=== PATIENT | female | born 1950 | race African-American/Black ===

== ENCOUNTER 2016-05-26 18:32 | Observation (INO) ==
[2016-05-26] MEDS ORDERED: NITROGLYCERIN SL 0.4 MG TABLET SL PRN (19:57)
[2016-05-26 20:28] LABS: Basophils % 0.2 % (0.0-0.8); Eosinophils # 0.1 10*3/uL (0.0-0.87); Eosinophils % 0.9 % (0.00-10.9); Hematocrit 35.5 VOL% (35.7-47.0); Hemoglobin 11.2 GM/DL (12.0-16.0); Immature Granulocytes % 0.5 %; Immature Granulocytes Absolute 0.04 #; Lymphocytes # 3.7 10*3/uL (1.4-4.0); Lymphocytes % 42.4 % (21.3-54.2); Mean Corpuscular HGB Conc 31.5 GM/DL (32-36); Mean Corpuscular Hemoglobin 28 PG (27-34); Mean Corpuscular Volume 88.5 FL (87-102); Mean Platelet Volume 11.2 FL (9.6-12.0); Monocytes # 0.7 10*3/uL (0.11-0.8); Monocytes % 7.5 % (1.7-12.7); Neutrophils # 4.3 10*3/uL (1.4-7.4); Neutrophils % 48.5 % (38.7-73.9); Platelet Count 305 T/CUMM (130-400); Red Blood Count 4.01 MC/CUMM (3.8-5.5); Red Cell Distribution Width 14.6 % (9.3-17.3); White Blood Count 8.8 T/CUMM (4-12)
--- NOTE | 2016-05-26 20:31 | XRay Report ---
XR chest 2V Date: 05/26/2016 7:59 PM History: Chest pain Comparison: 03/07/2016 Technique: PA and lateral chest Findings: The heart is normal in size. The lungs and mediastinum are stable in appearance. Degenerative changes are noted. Prior cholecystectomy. Impression: No acute cardiopulmonary pathology identified. PROCEDURE INTERPRETED AT [facility] DEPARTMENT OF RADIOLOGY Final Report Signed by: Dr. Sabine Mullins
[2016-05-26 20:35] LABS: PT Patient Result 10.1 SECS; Partial Thromboplastin Time 27.5 SECS (0-40)
[2016-05-26 21:02] LABS: Alanine Aminotransferase 13 U/L (13-56); Albumin 3.7 G/DL (3.4-5.0); Alkaline Phosphatase 72 U/L (45-117); Aspartate Amino Transferase 13 U/L (0-37); Bilirubin,Total < 0.39 MG/DL (0.2-1.0); Blood Urea Nitrogen 12 MG/DL (7-18); Calcium 8.3 MG/DL (8.5-10.1); Glucose 101 MG/DL (74-106); Magnesium 2.2 MG/DL (1.8-2.4); Osmolality,Calculated 289.6 MOS/KG (273-304); Potassium 3.8 MMOL/L (3.5-5.1); Sodium 146 MMOL/L (136-145)
[2016-05-26 21:27] LABS: Apearance,Urine CLEAR (Clear); Bilirubin,Urine Negative (Negative); Blood, Urine Negative (Negative); Glucose,Urine (UA) Negative (Negative); Ketones,Urine Negative (Negative); Nitrite,Urine Negative (Negative); Protein,Urine Negative; Squamous Epithelial Cell,Urine Occasional /HPF (0-10); Urine Color Colorless (Yellow); Urine Specific Gravity 1.002 (1.001-1.035); Urine Urobilinogen < 2.0 EU/DL (0.2-1.0); WBC,Urine <1 /HPF (0-6)
[2016-05-26 21:47] LABS: Barbiturates Screen,Urine Negative (Negative); Benzodiazepines Screen,Urine Negative (Negative); Cannabinoid Screen,Urine Negative (Negative); Opiate Screen,Urine Negative (Negative); Phencyclidine Screen,Urine Negative (Negative)
[2016-05-26] MEDS ORDERED: NITROGLYCERIN SL 0.4 MG TABLET SL STA (22:10)
[2016-05-26] MEDS ORDERED: NITROGLYCERIN SL 0.4 MG TABLET SL ONE (22:40)
--- NOTE | 2016-05-26 22:58 | Emergency Department Note ---
Inez Aponte Brittany, am scribing for, and in the presence of, Lucio Lyons MD 20:05. Eloy Aponte William S., MD, personally performed the services described in this documentation, ascribed by Elena Wiley in my presence, and it is both accurate and complete . Arrival - Arrival Chief Complaint: Chest Pain Stated Complaint: chest pain ED Nursing Triage Note: pain in center of chest radiating up under left arm that started one hour ago. reports sob when she walks for awhile. sent here from [facility]. Mode of Arrival: Ambulatory Limitations: No Limitations Source: Patient - History of Present Illness HPI Narrative: This is a a 65 y/o black female,who presents to the ED for further evaluation of CP which started last week. She states she is also SOB with the chest pain. She reports the chest pain lasted 30 minutes. She states the chest pain comes and goes. She localizes the chest pain to the upper chest area. She rates the chest pain as a 9 out of 10. She describes the chest pain as a burning type of pain. She reports the SOB is worse with exertion.Pt also complains of URI Sx which started last week. She reports she started to cough up mucous. Pt has no other complaints/pain in the ED at this time. Pt has a PMhx of HTN, endometriosis, ovarian cyst, musculoskeletal problems. Pt has had an appendectomy, cholecystectomy, , colonoscopy, EGD, gynecological surgery, hysterectomy, and total knee replacement. Pt has a family medical Hx of heart disease, diabetes, HTN, and stroke. Pt is a current every day smoker. Onset (ago): hour(s) (Started earlier today) Consistency: constant Severity: moderate Allergies/Adverse Reactions: Allergies Allergy/AdvReac Type Severity Reaction Status Date / Time ketorolac [From Toradol] AdvReac Intermediate Abdominal Verified 03/18/16 07:07 Pain Home Medications: Home Medications Medication Instructions Recorded Confirmed Type Atenolol 50 mg PO DAILY 03/07/16 03/21/16 History Donepezil HCl 10 mg PO DAILY 03/07/16 03/21/16 History Gabapentin 300 mg PO BEDTIME 03/07/16 03/21/16 History NIFEdipine XL TAB [Procardia Xl] 60 mg PO DAILY 03/07/16 03/21/16 History PARoxetine [Paxil] 20 mg PO DAILY 03/07/16 03/21/16 History Simvastatin 40 mg PO BEDTIME 03/07/16 03/21/16 History Acetaminophen Tab [Tylenol Tab] 650 mg PO Q6H PRN #0 tablet 03/21/16 03/21/16 Rx Aspirin EC Tab 325 mg PO DAILY #30 tablet 03/21/16 03/21/16 Rx Docusate Sodium Cap [Colace Cap] 100 mg PO BID capsule 03/21/16 03/21/16 Rx HYDROcodone/ACETAMIN 7.5-325 1 tablet PO Q4H PRN 03/21/16 03/21/16 History [[place] 7.5-325] Hydrocodone/Acetaminophen 2 tablet PO Q4HR PRN 03/21/16 03/21/16 History [Hydrocodon-Acetaminoph 7.5-325] Review of System - Review of System 12 point system: reviewed and no additional remarkable complaints except as stated - Review of System Cardiovascular: Present: palpitations, dyspnea on exertion Medical,Surgical,& Family Hx - Medical History Cardio: History of: Aneurysm (diab), Hypertension HEENT: History of: Eye Problem (CATARACTS GLASSES) Musculoskeletal: History of: Amputation, Musculoskeletal Problems Reproductive: History of: Endometriosis, Ovarian Cysts - Surgical History Cardiac Surgeries: Patient Denies: Femoral-Popliteal Bypass Graft, Cardiac Catheterization, Cardiac Surgery, Carotid Endarterectomy, Internal Defibrillator, Vascular Access Devices Thoracic Surgeries: Patient denies;: Kidney (Renal Surgery), Lithotripsy, Nephrectomy, Organ Transplant HEENT Surgeries: Patient denies: Carotid Endarterectomy, Eye Surgery, Tonsilectomy & Adenoidectomy Abdominal Surgeries: Surgical HX of: Abdominal Surgery, Appendectomy, Cholecystectomy, Colonoscopy, EGD Patient denies: Splenectomy Reproductive Surgeries: Surgical HX of;: Section (X2), Gynecologic Surgery, Hysterectomy Patient denies;: Cystoscopy, Genitourinary Surgery Orthopedic Surgeries: Surgical HX of;: Total Knee Replacement (RIGHT KNEE) - Family History Family History: Reports;: Family Diabetes (1 SISTER 2 BROTHERS), Family Heart Disease (SISTER), Family Hypertension (7 SIBLINGS), Family Stroke (MOM) - Social History Smoking Status: Current every day smoker Exam Vital Signs: Vital Signs Temperature 98.1 F 05/26/16 18:55 Pulse Rate 68 05/26/16 18:55 Respiratory Rate 18 05/26/16 18:55 Blood Pressure 146/77 05/26/16 18:55 O2 Sat by Pulse Oximetry 97 05/26/16 18:37 - General General appearance: alert, in no apparent distress - Head Head exam: Present: atraumatic, normocephalic, normal inspection - Eye Eye exam: Present: normal appearance, PERRL, EOMI. Absent: nystagmus, miosis, mydriasis - ENT ENT exam: Present: normal exam, normal oropharynx, mucous membranes moist - Neck Neck exam: Present: normal inspection, full ROM, trachea midline. Absent: tenderness, meningismus, lymphadenopathy, thyromegaly - Chest Chest inspection: Present: normal inspection, symmetric chest wall rise. Absent : tenderness, rash, abscess - Respiratory Respiratory exam: Present: normal lung sounds bilaterally. Absent: rales, respiratory distress, rhonchi, stridor, wheezes - Cardiovascular Cardiovascular exam: Present: regular rate, normal rhythm, normal heart sounds. Absent: murmur, rubs, gallop, clicks - Abdominal Exam Abdominal exam: Present: soft, normal bowel sounds. Absent: distention, tenderness, guarding, rebound, rigidity - Rectal Exam Rectal exam: Present: deferred - Extremities Exam Extremities exam: Present: normal inspection, full ROM, normal capillary refill. Absent: tenderness, pedal edema, joint swelling, calf tenderness - Back Exam Back exam: Present: normal inspection, full ROM. Absent: tenderness, muscle spasm, rashes - Neurological Exam Neurological exam: Present: alert, oriented X3, CN II-XII intact. Absent: motor sensory deficit - Psychiatric Psychiatric exam: Present: normal affect, normal mood. Absent: depressed, agitated, anxious, manic - Skin Skin exam: Present: warm, dry, intact, normal color. Absent: rash, cyanosis, diaphoresis, erythema, pallor, mottled Course - Reevaluation(s) Reevaluation #1: Patient is seen multiple times during the course of the ER stay. Patient presented with exertional chest pain as well as having a cough. Patient's chest x-ray was negative for evidence of infectious process. The patient states that the pain did radiate up under the left arm and also that she had associated shortness of breath with exertion. Patient currently was pain-free. Of note the patient is currently a [facility] for [place] abuse and is not being given any narcotics while in the emergency department for any pain relief. Chest x-ray was negative, cardiac labs were negative. EKG shows normal sinus rhythm at 62 with a CASSANDRA of 188 and a QTc of 409. Case is discussed with the physician director geothermal operations and the patient will be admitted to Dr. Fierro service with cardiology consult to be obtained in the morning. Results - Labs CBC & BMP: 05/26/16 19:00 05/26/16 19:00 Lab Results: I have reviewed the patients labs Labs: Laboratory Tests 05/26/16 05/26/16 05/26/16 19:00 19:00 19:00 WBC RBC Hgb Hct MCV MCH MCHC RDW Plt Count MPV Neut % (Auto) Lymph % (Auto) [facility] % (Auto) Eos % (Auto) Baso % (Auto) Neut # (Auto) Lymph # (Auto) [facility] # (Auto) Eos # (Auto) Baso # (Auto) Immature Gran % Nucleated RBC % Immature Gran # Nucleated RBCs # INR 1.0 PT Patient/Control Mix 10.1 Circ Anticoag PTT 27.5 Sodium 146 H Potassium 3.8 Chloride 111 H Carbon Dioxide 28 Anion Gap 10.8 BUN 12 Creatinine 0.90 GFR Calculation 86 BUN/Creatinine Ratio 13.00 Glucose 101 Calculated Osmolality 289.6 Calcium 8.3 L Magnesium 2.2 Total Bilirubin < 0.39 AST 13 ALT 13 Alkaline Phosphatase 72 Troponin I B-Natriuretic Peptide 78 Total Protein 7.0 Albumin 3.7 Globulin 3.3 Albumin/Globulin Ratio 1.1 Lipase 194.0 Urine Color Urine Appearance Urine pH Ur Specific [place] Urine Protein Urine Glucose (UA) Urine Ketones Urine Blood Urine Nitrate Urine Bilirubin Urine Urobilinogen Urine Leukocytes Urine WBC Ur Squamous Epith Cells Ur Culture Indicated? Urine Opiates Screen Ur Barbiturates Screen Ur Phencyclidine Scrn U Amphetamine/Methamph U Benzodiazepines Scrn U Cocaine Metab Screen U Cannabinoids Screen 05/26/16 05/26/16 05/26/16 19:00 19:00 21:20 WBC 8.8 RBC 4.01 Hgb 11.2 L Hct 35.5 L MCV 88.5 MCH 28 MCHC 31.5 L RDW 14.6 Plt Count 305 MPV 11.2 Neut % (Auto) 48.5 Lymph % (Auto) 42.4 [facility] % (Auto) 7.5 Eos % (Auto) 0.9 Baso % (Auto) 0.2 Neut # (Auto) 4.3 Lymph # (Auto) 3.7 [facility] # (Auto) 0.7 Eos # (Auto) 0.1 Baso # (Auto) 0.0 Immature Gran % 0.5 Nucleated RBC % 0.0 Immature Gran # 0.04 Nucleated RBCs # 0.00 INR PT Patient/Control Mix Circ Anticoag PTT Sodium Potassium Chloride Carbon Dioxide Anion Gap BUN Creatinine GFR Calculation BUN/Creatinine Ratio Glucose Calculated Osmolality Calcium Magnesium Total Bilirubin AST ALT Alkaline Phosphatase Troponin I < 0.015 B-Natriuretic Peptide Total Protein Albumin Globulin Albumin/Globulin Ratio Lipase Urine Color Colorless Urine Appearance Clear Urine pH 7.0 Ur Specific [place] 1.002 Urine Protein Negative Urine Glucose (UA) Negative Urine Ketones Negative Urine Blood Negative Urine Nitrate Negative Urine Bilirubin Negative Urine Urobilinogen < 2.0 H Urine Leukocytes Negative Urine WBC <1 Ur Squamous Epith Cells Occasional Ur Culture Indicated? Not indicated Urine Opiates Screen Ur Barbiturates Screen Ur Phencyclidine Scrn U Amphetamine/Methamph U Benzodiazepines Scrn U Cocaine Metab Screen U Cannabinoids Screen 05/26/16 21:20 WBC RBC Hgb Hct MCV MCH MCHC RDW Plt Count MPV Neut % (Auto) Lymph % (Auto) [facility] % (Auto) Eos % (Auto) Baso % (Auto) Neut # (Auto) Lymph # (Auto) [facility] # (Auto) Eos # (Auto) Baso # (Auto) Immature Gran % Nucleated RBC % Immature Gran # Nucleated RBCs # INR PT Patient/Control Mix Circ Anticoag PTT Sodium Potassium Chloride Carbon Dioxide Anion Gap BUN Creatinine GFR Calculation BUN/Creatinine Ratio Glucose Calculated Osmolality Calcium Magnesium Total Bilirubin AST ALT Alkaline Phosphatase Troponin I B-Natriuretic Peptide Total Protein Albumin Globulin Albumin/Globulin Ratio Lipase Urine Color Urine Appearance Urine pH Ur Specific [place] Urine Protein Urine Glucose (UA) Urine Ketones Urine Blood Urine Nitrate Urine Bilirubin Urine Urobilinogen Urine Leukocytes Urine WBC Ur Squamous Epith Cells Ur Culture Indicated? Urine Opiates Screen Negative Ur Barbiturates Screen Negative Ur Phencyclidine Scrn Negative U Amphetamine/Methamph Negative U Benzodiazepines Scrn Negative U Cocaine Metab Screen Negative U Cannabinoids Screen Negative - Diagnostic Findings Procedure: Chest x-ray: report reviewed by me (Nothing acute) Disposition Clinical Impression: Chest pain Case discussed with: patient Disposition: Still a Patient Condition: Stable
[2016-05-27 01:30] LABS: Troponin I Only < 0.015 NG/ML (0.00-0.045)
[2016-05-27 04:55] LABS: Troponin I Only < 0.015 NG/ML (0.00-0.045)
--- NOTE | 2016-05-27 06:34 | EKG Report ---
Stationary ECG Study [facility] ER Test Date: 05/26/2016 6:46:15 PM Pat Name: MADISYN MOLINA Department: Room: 262 Gender: F Hospice Aide: : 1950 Requested by: Lucio Bridges Order Number: [id number] Aureliano MD: PAULA MEADOWS Intervals [place] Rate: 62 P: -5 CT: 188 QRS: -4 QRSD: 95 T: 21 QT: 404 QTc: 409 Interpretive Statements SINUS RHYTHM POSSIBLE LEFT ATRIAL ENLARGEMENT SEPTAL INFARCT, AGE UNDETERMINED Electronically Signed On 05-29-16 12:35:02 CDT by PAULA MEADOWS [email or web address]
--- NOTE | 2016-05-27 07:19 | EKG Report ---
Stationary ECG Study [facility] Test Date: 05/27/2016 7:18:28 AM Pat Name: MADISYN MOLINA Department: Room: 262 Gender: F Fun House Attendant: JUANA : 1950 Requested by: Sarthak Toth Order Number: [id number] Aureliano MD: PAULA MEADOWS Intervals [place] Rate: 52 P: 42 W[place]: 224 QRS: 10 QRSD: 87 T: -12 QT: 434 QTc: 413 Interpretive Statements SINUS BRADYCARDIA WITH SINUS ARRHYTHMIA WITH PROLONGED W[place] INTERVAL NONSPECIFIC T-WAVE ABNORMALITY Electronically Signed On 05-29-16 12:39:04 CDT by PAULA MEADOWS [email or web address]
[2016-05-27 07:48] LABS: Troponin I Only < 0.015 NG/ML (0.00-0.045)
[2016-05-27] MEDS: DOCUSATE SODIUM 100 MG CAPSULE PO SCH ×2 (10:00→21:33)
[2016-05-27] MEDS ORDERED: ALBUTEROL/IPRATROPIUM 3 ML NEB RESP TX PRN (10:22)
--- NOTE | 2016-05-27 10:31 | Hospitalist History & Physical ---
<Nany Ma - Last Filed: 05/27/16 10:23> Assessment and Plan - Time spent with patient Time spent with patient: Greater than 30 minutes (1) Productive cough Status: Acute Assessment and plan: 65-year-old -[place]yr[place] female with history of hypertension, hyperlipidemia , [place] substance abuse admitted from the ED with complaints of chest burning with exertion and productive cough. Patient been admitted to telemetry and is n.p.o. for cardiology consult this morning. Her case has been discussed with Dr. Gama and further recommendations to follow. Hypertension/hyperlipidemia/anxiety and depression--restart home meds except narcotics. She will be given tramadol, Motrin and Tylenol for pain. Narcotic substance abuse--these will be held for her hospital stay since she is actively going through rehab. Patient has some complaints of withdrawal symptoms so we will go ahead and hang banana bag. Productive cough--patient is complaining of chest congestion and cough that is productive. Have ordered duo nebs and incentive spirometry. Her chest x-ray is normal and her lungs are clear. WBCs are normal and she is afebrile. Chest pain with exertion--patient is n.p.o. for cardiology consult. Patient may need stress test but will let cardiology decide this. Her chest burning and pain could be from her coughing congestion but with her symptoms increasing upon exertion this is concerning. Current Visit: Yes (2) Shortness of breath on exertion Status: Acute Current Visit: Yes (3) Burning chest pain Status: Acute Current Visit: Yes (4) Hypertension Status: Acute Current Visit: No (5) Hyperlipidemia Status: Acute Current Visit: No (6) Chest pain Status: Acute Current Visit: Yes History of Present Illness Chief complaint: chest burning History of present illness: Ms. Meyer is a 65 year old -[place]yr[place] female with history of hypertension , hyperlipidemia, anxiety and depression, and prescription medication abuse admitted last night through the emergency department with complaints of chest burning. Patient states a week ago she started having a cough that is now turned productive. She states she has burning in the center of her chest that increases with exertion. She states the pain does not radiate down her left arm but it does radiate into the left axilla region. She does have shortness of breath associated with this. She is also complaining of headache and blurred vision. Patient denies dizziness, dysphagia, abdominal pain, constipation, diarrhea, urinary difficulties, or lower extremity edema or weakness. Patient is a resident at [facility] for [place] substance abuse. She has been there approximately 3 weeks now. She states she has chronic back pain and has seen Dr. Schmidt at the pain clinic and she had a knee replacement in March by Dr. Steele. She feels like she was taking too many [place] so checked herself into [facility]. She feels like she may be undergoing symptoms of withdrawal as well. Upon exam, patient is comfortable and in no acute distress. Her chest is clear heart rate is normal with no murmurs heard. She is not complaining of chest pain or shortness of breath at this time. Her vital signs are stable and her troponins have all been negative 3. Her labs including CBC, coags, chemistry, UA, and toxicology screens are all near normal. Her admission EKG showing a possible left atrial enlargement with an age undetermined septal infarct. Patient was admitted by Dr. Lyons from the ED last night originally to Dr. Toth. It was found that Dr. Toth saw her at [facility] bed for rehab and he is not her family physician. Her family physician is Dr. Kearney who does not admit to the hospital anymore. After the discussion with the floor and evaluating patient's previous admissions, it has been decided that Dr. Gama will be the admitting hospitalist. Home Medications Medication Instructions Recorded Confirmed Type Atenolol 50 mg PO DAILY 03/07/16 05/27/16 History Donepezil HCl 10 mg PO DAILY 03/07/16 05/27/16 History Gabapentin 300 mg PO BEDTIME 03/07/16 05/27/16 History NIFEdipine XL TAB [Procardia Xl] 60 mg PO DAILY 03/07/16 05/27/16 History PARoxetine [Paxil] 20 mg PO DAILY 03/07/16 05/27/16 History Simvastatin 40 mg PO BEDTIME 03/07/16 05/27/16 History Acetaminophen Tab [Tylenol Tab] 650 mg PO Q6H PRN #0 tablet 03/21/16 05/27/16 Rx Aspirin EC Tab 325 mg PO DAILY #30 tablet 03/21/16 05/27/16 Rx Docusate Sodium Cap [Colace Cap] 100 mg PO BID capsule 03/21/16 05/27/16 Rx HYDROcodone/ACETAMIN 7.5-325 1 tablet PO Q4H PRN 03/21/16 05/27/16 History [[place] 7.5-325] Hydrocodone/Acetaminophen 2 tablet PO Q4HR PRN 03/21/16 05/27/16 History [Hydrocodon-Acetaminoph 7.5-325] Allergies Allergy/AdvReac Type Severity Reaction Status Date / Time ketorolac [From Toradol] AdvReac Intermediate Abdominal Verified 03/18/16 07:07 Pain Medical,Surgical,& Family Hx - Medical History Cardio: History of: Aneurysm (diab), Hypertension Psychological: History of: Psychiatric/Substance Abuse Tx (PER ER NOTES, TRANSFERRED TO [facility] FROM [facility] FOR [place] ABUSE) HEENT: History of: Eye Problem (CATARACTS GLASSES) Musculoskeletal: History of: Amputation, Musculoskeletal Problems Reproductive: History of: Endometriosis, Ovarian Cysts - Surgical History Cardiac Surgeries: Patient Denies: Femoral-Popliteal Bypass Graft, Cardiac Catheterization, Cardiac Surgery, Carotid Endarterectomy, Internal Defibrillator, Vascular Access Devices Thoracic Surgeries: Patient denies;: Kidney (Renal Surgery), Lithotripsy, Nephrectomy, Organ Transplant HEENT Surgeries: Patient denies: Carotid Endarterectomy, Eye Surgery, Tonsilectomy & Adenoidectomy Abdominal Surgeries: Surgical HX of: Abdominal Surgery, Appendectomy, Cholecystectomy, Colonoscopy, EGD Patient denies: Gastric Bypass Surgery, Splenectomy Reproductive Surgeries: Surgical HX of;: Section (X2), Gynecologic Surgery, Hysterectomy Patient denies;: Cystoscopy, Genitourinary Surgery Orthopedic Surgeries: Surgical HX of;: Total Knee Replacement (RIGHT KNEE) - Family History Family History: Reports;: Family Diabetes (1 SISTER 2 BROTHERS), Family Heart Disease (SISTER), Family Hypertension (7 SIBLINGS), Family Stroke (MOM) - Social History Smoking Status: Current every day smoker Frequency of Alcohol Use: None Type of Drug Use: Prescription Drug Abuse Functional capacity: independent ambulation Review of systems: A complete 10 system review of systems has been obtained and pertinent positives and negatives are per HPI Exam - Constitutional Vitals: Period Temp Pulse Resp BP Sys/[place] Pulse Ox Last 24 Hr 97.2 F-97.5 F 54-60 16-20 132-173/75-94 100-100 Exam: Constitutional System: No distress. No tremulousness. Head: Normocephalic, atraumatic. Ears, Nose and Throat System: No evidence of Otitis or Mastoiditis. No epistaxis or discharge Eyes System: Pupils equal, round, and reactive. Extraocular muscles intact. Neck: Supple, with tenderness to tonsillar region, no adenopathy No jugular venous distention. No thyromegaly, neck mass, or prior surgery apparent. Respiratory System: Chest clear to auscultation. Cardiovascular System: Heart with regular rate and rhythm. No murmur. GI System: Abdomen soft, nontender. Normo active bowel sounds present. Musculoskeletal System: limbs with no pedal edema. Full distal pulses. Neurological System: No discernable sensory deficit. No aphasia Psychiatric System: Conversation is rational Results - Labs CBC & BMP: 05/26/16 19:00 05/26/16 19:00 Lab Results: I have reviewed the past 24 hour labs - EKG EKG results: interpreted by IAN EKG shows: sinus rhythm - Diagnostic Findings Procedure: Chest x-ray: report reviewed by me (No acute process identified) <Lazaro Gama - Last Filed: 05/27/16 12:54> Assessment and Plan (1) Chest pain Status: Acute Assessment and plan: We will proceed with evaluation of the chest pain as outlined above. Cardiology has already been consulted. I have seen the patient in collaboration with physician media center assistant. I have performed essential elements of the history and physical examination, and agree with the assessment and plan, except as noted in my addendum. This note was completed using [employer] voice recognition software. There may be marble machine operator errors as a result. Current Visit: Yes Qualifiers: Chest pain type: precordial pain Qualified Code(s): R07.2 - Precordial pain History of Present Illness History of present illness: Ms. Meyer is a 65 year old female The patient reports some chest congestion with a cough productive of green sputum for about a week. She had been taking some [id number] medication at home, and then noted some midsternal burning chest pressure. The chest pressure was worse with exertion. She reports a prior history of hypertension, and some intracranial aneurysms that have been clipped. There is no prior history of any heart disease. She is a family history of heart disease and intracranial aneurysms. A younger sister of heart disease. She smokes about half pack of cigarettes daily. Exam - Constitutional Vitals: Period Temp Pulse Resp BP Sys/[place] Pulse Ox Last 24 Hr 97.2 F-98.5 F 54-60 16-20 127-173/63-94 99-100 Exam: I have performed a physical examination on this patient, and agree with the examination as described above. Results - Labs CBC & BMP: 05/26/16 19:00 05/26/16 19:00
--- NOTE | 2016-05-27 10:52 | Cardiology Consult Note ---
<Cris Farris - Last Filed: 05/27/16 10:43> Assessment and Plan - Time spent with patient Time spent with patient: Greater than 30 minutes (1) Chest pain Status: Acute Assessment and plan: Patient is currently chest pain-free. This has some atypical and typical features. Cardiac biomarkers have been negative. EKG reveals nonspecific T- wave abnormality. We will continue to cycle cardiac biomarkers and monitor EKG. I will order an echocardiogram. Will keep patient n.p.o. and further discuss with Dr. Kirby. Further plan and addendum to follow per Dr. Kirby. Current Visit: Yes (2) Productive cough Status: Acute Assessment and plan: Patient is afebrile with normal white blood cell count. BNP is within normal limits and chest x-ray reveals normal-sized heart. Will defer further management to hospital medicine. Current Visit: Yes (3) Depression Status: Chronic Assessment and plan: Continue current plan of care with antidepressants. Current Visit: No (4) Hyperlipidemia Status: Chronic Assessment and plan: Continue current plan of care with lipid lowering agent. Current Visit: No (5) Hypertension Status: Chronic Assessment and plan: All medications have been reinitiated per hospital medicine. We will adjust medications as needed. Current Visit: No (6) Narcotic abuse Status: Acute Assessment and plan: Currently in treatment at [facility]. Current Visit: Yes History of Present Illness - Data of Consult Patient: new to practice Consult date: 05/27/16 Requesting Physician: Lucio Lyons Primary care physician: Demarco Kearney - Consult Narrative Reason for consult: Chest pain History of present illness: Ms. Meyer is a 65 year old female without a known history of coronary artery disease, not routinely followed by cardiology. Patient reports that she was seen by [facility] cardiology in the remote past. PCP: Dr. Mercado. Patient presented to the ER yesterday with complaints of cough, sinus drainage and chest discomfort. She has cardiac risk factors significant for hypertension, hyperlipidemia, sedentary lifestyle, advanced age and family history of premature coronary artery disease (sister had 3 coronary stents placed at age 48 ). Patient has a past medical history of depression and narcotic abuse. She is currently a resident at [facility]. She reports that she had a heart cath approximately 10-[address] [facility]. She reports that her heart cath was "normal" at that time. She also tells me that she underwent stress testing approximately 10-15 years ago. This was also noted to be "normal ". Patient has not followed up with cardiology since that time. Patient was in her usual state of health until approximately 1 week ago when she began to experience cough. She reports that over the past week this has transitioned into a productive cough. This is worsened when she lies down at night. She also confirms a tingling sensation in her throat, stuffy/runny nose , fever, mild headache and swollen eyes thought to be due to allergies. Patient presented to the ER yesterday for treatment of what she thought was a sinus infection. While in the ER, she mentioned that she experiences chest pain with cough. She describes her chest discomfort as a burning sensation and soreness located to her midsternal chest area. Nonradiating. This is also associated with shortness of breath and nausea. She reports that her chest discomfort is worsened when she walks. She also confirms worsening dyspnea on exertion and easy fatigability. She reports that she feels like this is all secondary to her "sinus infection." She is unable to identify any alleviating factors. She denies abdominal pain, melena, vomiting, orthopnea, PND and lower extremity swelling. Patient has been admitted under the hospitalist's service and housed on the telemetry floor. Cardiology has been consulted to further evaluate patient's chest pain. Patient was seen and examined on the telemetry unit. Patient is currently chest pain-free. She reports that she has not experienced any further chest pain after being admitted to the hospital. Cardiac biomarkers have been negative. Troponin has been negative 4 checks. EKG reveals nonspecific T- wave abnormality. BNP 78. Chest x-ray reveals no acute cardiopulmonary pathology. The heart is normal in size. Patient has been afebrile. White blood cell count within normal limits. Will keep patient n.p.o. and further discuss this with Dr. Kirby. Order echocardiogram. We will continue to cycle cardiac biomarkers and EKG. Further plan and addendum to follow per Dr. Kirby. Further plan and addendum to follow per Dr. Kirby. CC: Sarthak Toth MD - Home Medications and Allergies Home Medications: Home Medications Medication Instructions Recorded Confirmed Type Atenolol 50 mg PO DAILY 03/07/16 05/27/16 History Donepezil HCl 10 mg PO DAILY 03/07/16 05/27/16 History Gabapentin 300 mg PO BEDTIME 03/07/16 05/27/16 History NIFEdipine XL TAB [Procardia Xl] 60 mg PO DAILY 03/07/16 05/27/16 History PARoxetine [Paxil] 20 mg PO DAILY 03/07/16 05/27/16 History Simvastatin 40 mg PO BEDTIME 03/07/16 05/27/16 History Acetaminophen Tab [Tylenol Tab] 650 mg PO Q6H PRN #0 tablet 03/21/16 05/27/16 Rx Aspirin EC Tab 325 mg PO DAILY #30 tablet 03/21/16 05/27/16 Rx Docusate Sodium Cap [Colace Cap] 100 mg PO BID capsule 03/21/16 05/27/16 Rx HYDROcodone/ACETAMIN 7.5-325 1 tablet PO Q4H PRN 03/21/16 05/27/16 History [[place] 7.5-325] Hydrocodone/Acetaminophen 2 tablet PO Q4HR PRN 03/21/16 05/27/16 History [Hydrocodon-Acetaminoph 7.5-325] Allergies/Adverse Reactions: Allergies Allergy/AdvReac Type Severity Reaction Status Date / Time ketorolac [From Toradol] AdvReac Intermediate Abdominal Verified 03/18/16 07:07 Pain - Constitutional Constitutional: Present: chills, fatigue, fever(s), headache(s), malaise. Absent: frequent falls, weight gain, weight loss - Cardiovascular Cardiovascular: Present: as per HPI, diaphoresis, dyspnea, dyspnea on exertion. Absent: claudication, edema, radiating jaw, neck or arm pain, lightheadedness , orthopnea, palpitations, PND - Respiratory Respiratory: Present: cough, dyspnea, dyspnea on exertion, change in phlegm color. Absent: hemoptysis, wheezing, snoring - Gastrointestinal Gastrointestinal: Present: nausea. Absent: abdominal pain, change in bowel habits, coffee ground emesis, constipation, cramping, diarrhea, heartburn, hematemesis, hematochezia, loose stools, melena, vomiting - Neurological Neurological: Present: headache(s). Absent: abnormal gait, abnormal speech, behavioral changes, dizziness, frequent falls, syncope - Psychiatric Psychiatric: Present: depression. Absent: anxiety - Hematologic/Lymphatic Hematologic/Lymphatic: Absent: easy bleeding, easy bruising, lymphadenopathy Medical,Surgical,& Family Hx - Medical History Cardio: History of: Hypertension Psychological: History of: Depression, Psychiatric/Substance Abuse Tx ( TRANSFERRED TO [facility] FROM [facility] FOR [facility] ABU[facility]) HEENT: History of: Eye Problem (CATARACTS GLASSES) Endocrine: History of: Dyslipidemia Musculoskeletal: History of: Musculoskeletal Problems Reproductive: History of: Endometriosis, Ovarian Cysts - Surgical History Cardiac Surgeries: Sugical HX of: Cardiac Catheterization Abdominal Surgeries: Surgical HX of: Abdominal Surgery, Appendectomy, Cholecystectomy, Colonoscopy, EGD Reproductive Surgeries: Surgical HX of;: Section (X2), Gynecologic Surgery, Hysterectomy Orthopedic Surgeries: Surgical HX of;: Total Knee Replacement (RIGHT KNEE) - Family History Family History: Reports;: Family Diabetes (1 SISTER 2 BROTHERS), Family Heart Disease (Sister had 3 stents placed at age 48), Family Hypertension (7 SIBLINGS) , Family Stroke (MOM) - Social History Smoking Status: Current every day smoker Frequency of Alcohol Use: None Type of Drug Use: Prescription Drug Abuse Physical Examination Vital Signs Temp Pulse Resp BP Pulse Ox 98.1 F 68 18 146/77 97 05/26/16 18:37 05/26/16 18:37 05/26/16 18:37 05/26/16 18:37 05/26/16 18:37 General: Present: Appears Well, No Apparent Distress Neck: Present: Supple Neck, Midline Trachea, No JVD/HJR, No Bruit Cardiac: Present: Reg Rate and Rhythm, Regular Rate, Regular Rhythm, S1/S2, No Murmur Lungs: Present: Normal Exam, Clear Ascult./Percussion, Normal Breath Sounds, No Wheeze, Rales, Rhonchi. Absent: Oxygen Abdomen: Present: Soft, Active Bowel Sounds, No Masses, Non-Tender Skin: Present: Clear. Absent: Rash Gait: Present: Normal Gait Extremities: Present: Normal Gait, No Clubbing, No Cyanosis, No Edema, Normal Upper Extr. Pulses, Normal Lower Extr. Pulses Result/EKG - Labs CBC & BMP: 05/26/16 19:00 05/26/16 19:00 Lab Results: I have reviewed the past 24 hour labs Labs: Laboratory Results - last 24 hr 05/27/16 05/27/16 05/27/16 00:56 03:26 06:36 Total Creatine Kinase 62 59 51 CK-MB (CK-2) 1.0 < 1.0 < 1.0 Troponin I < 0.015 < 0.015 < 0.015 <KofiFacundo Jimenez - Last Filed: 05/27/16 13:03> History of Present Illness - Consult Narrative History of present illness: I interviewed and examined the patient and reviewed her chart. I discussed the case with Cris Farris NP. Ms. Meyer is a 65 year old female with atypical chest pain and cardiac. She does have some risk factors coronary disease but with completely normal troponins and atypical presentation I think cardiac perfusion study would be the best approach for this patient. She's had no prior cardiac disease or vascular disease. I discussed the situation with her. Examination was carried out as well and without specific abnormalities noted. As noted her ECG is without pacific T-wave abnormalities. We will try to cure out cardiac perfusion study today. I agree with the present evaluation. CC: Sarthak Toth MD Physical Examination Vital Signs Temp Pulse Resp BP Pulse Ox 98.1 F 68 18 146/77 97 05/26/16 18:37 05/26/16 18:37 05/26/16 18:37 05/26/16 18:37 05/26/16 18:37 Result/EKG - Labs CBC & BMP: 05/26/16 19:00 05/26/16 19:00 Labs: Laboratory Results - last 24 hr 05/27/16 05/27/16 05/27/16 00:56 03:26 06:36 Total Creatine Kinase 62 59 51 CK-MB (CK-2) 1.0 < 1.0 < 1.0 Troponin I < 0.015 < 0.015 < 0.015
[2016-05-27] MEDS ORDERED: THIAMINE INJ 100 MG, FOLIC ACID INJ 1 MG, MULTIVITAMIN INJ 10 ML in SODIUM CHLORIDE 0.9... IV SCH (11:00)
[2016-05-27] MEDS: ALBUTEROL/IPRATROPIUM 3 ML NEB RESP TX SCH ×3 (11:54→21:38)
[2016-05-27] MEDS: ENOXAPARIN 40 MG/0.4 ML SYRINGE SUBCUT SCH (12:25)
[2016-05-27] MEDS ORDERED: REGADENOSON 0.4 MG/5 ML SYRINGE IV ONE (15:06)
--- NOTE | 2016-05-27 15:09 | Event Note ---
Patient underwent Lexiscan stress testing (declined exercise stress testing due to "fatgiue.") No chest pain, heaviness or tightness. No arrythmia noted. No ST changes noted. Now, to nuclear medicine for final scan. Dr. Wan to read, interpret and advise.
[2016-05-27] MEDS: ATENOLOL 50 MG TABLET PO SCH (17:38)
[2016-05-27] MEDS: DONEPEZIL 10 MG TABLET PO SCH (17:38)
[2016-05-27] MEDS: ASPIRIN EC 325 MG TABLET PO SCH (17:38)
[2016-05-27] MEDS: PARoxetine 20 MG TABLET PO SCH (17:38)
[2016-05-27] MEDS: PANTOPRAZOLE 40 MG TABLET PO SCH (17:38)
[2016-05-27] MEDS: ACETAMINOPHEN 325 MG TABLET PO PRN ×2 (17:44→21:37)
--- NOTE | 2016-05-27 17:53 | EKG Report ---
Stationary ECG Study [facility] Test Date: 05/27/2016 5:54 PM Pat Name: MADISYN MOLINA Department: Room: 262 Gender: F [employer] Internship: [employer] : 1950 Requested by: Sarthak Toth Order Number: [id number] Reading MD: LUIS F BROWNING Intervals [place] Rate: 53 P: 60 ND: 242 QRS: -3 QRSD: 83 T: 14 QT: 430 QTc: 414 Interpretive Statements SINUS BRADYCARDIA WITH FIRST-DEGREE AVB at 53 bpm Early repolarization Mild NST Electronically Signed On 05-31-16 16:31:42 CDT by LUIS F BROWNING [email or web address]
--- NOTE | 2016-05-27 18:25 | Discharge Summary ---
<Nany Ma - Last Filed: 05/27/16 18:22> Hospital Course - Hospital Course Hospital Course: Ms. Meyer is a 65-year-old -[place] female with history of hypertension , and hyperlipidemia admitted by the hospitalist service on 05/26/2016 with complaints of midsternal chest burning without radiation and cough with worsening dyspnea on exertion and easy fatigability. Patient's cardiac biomarkers were negative 4. Her EKG showed nonspecific T-wave abnormalities and with patient's increased risk factors stress test was ordered by Dr. Kirby from cardiology. She underwent Lexiscan stress testing with no chest pain, heaviness, or tightness. There were no arrhythmias noted and no ST changes is noted. - Time spent with patient Time with patient DS: Greater than 30 minutes Diagnosis - Discharge Diagnosis (1) Productive cough Status: Acute (2) Shortness of breath on exertion Status: Acute (3) Burning chest pain Status: Resolved (4) Hypertension Status: Chronic (5) Hyperlipidemia Status: Chronic (6) Chest pain Status: Acute Discharge Plan - Discharge Data Disposition: Disch/Xfer to Psych Hos Condition at Discharge: Stable Discharge Diet: advance to your usual diet Activity: resume usual activities as tolerated Driving: no restrictions Contact your physician if you experience:: Shortness of breath - Discharge Medications Continue NIFEdipine XL TAB [Procardia Xl] 60 mg PO DAILY Simvastatin 40 mg PO BEDTIME Atenolol 50 mg PO DAILY PARoxetine [Paxil] 20 mg PO DAILY Gabapentin 300 mg PO BEDTIME Donepezil HCl 10 mg PO DAILY Acetaminophen Tab [Tylenol Tab] 650 mg PO Q6H PRN #0 tablet PRN Reason: Pain Mild (1-3) Aspirin EC Tab 325 mg PO DAILY #30 tablet Docusate Sodium Cap [Colace Cap] 100 mg PO BID capsule Hydrocodone/Acetaminophen [Hydrocodon-Acetaminoph 7.5-325] 2 tablet PO Q4HR PRN PRN Reason: Pain HYDROcodone/ACETAMIN 7.5-325 [[place] 7.5-325] 1 tablet PO Q4H PRN PRN Reason: Pain - Follow Up or Referral - Forms/Instructions Exam - Constitutional Vitals: Period Temp Pulse Resp BP Sys/[place] Pulse Ox Last 24 Hr 97.4 F-99.0 F 55-66 16-20 110-156/67-97 98-100 Discharge Results Labs on day of discharge: Labs from last 24 hours 05/28/16 05/28/16 03:41 03:41 WBC 8.1 RBC 3.99 Hgb 11.2 L Hct 34.8 L MCV 87.2 MCH 28 MCHC 32.2 RDW 14.6 Plt Count 290 MPV 11.0 Neut % (Auto) 43.4 Lymph % (Auto) 47.4 Terrell % (Auto) 7.4 Eos % (Auto) 0.9 Baso % (Auto) 0.5 Neut # (Auto) 3.5 Lymph # (Auto) 3.9 Terrell # (Auto) 0.6 Eos # (Auto) 0.1 Baso # (Auto) 0.0 Immature Gran % 0.4 Nucleated RBC % 0.0 Immature Gran # 0.03 Nucleated RBCs # 0.00 Sodium 146 H Potassium 3.7 Chloride 113 H Carbon Dioxide 26 Anion Gap 10.7 BUN 11 Creatinine 0.60 GFR Calculation 122 BUN/Creatinine Ratio 18.00 Glucose 87 Calculated Osmolality 287.6 Calcium 8.7 Magnesium 2.3 DS: Provider Date of admission: 05/26/16 22:58 Primary care physician: Demarco Kearney MD Attending physician on admission: Sarthak Toth MD Consults: 05/27/16 01:13 Consult to Physician [CONS] Routine Comment: Consulting Provider: Cardiology - [facility] Discharging clinician: BIPIN Lucas <Lazaro Gama - Last Filed: 05/28/16 12:58> Hospital Course - Hospital Course Hospital Course: Stress test results are finally available for review. They are fairly normal. We will let her go back to her psychiatric facility. She wondered about an antibiotic for the chest pain. This does not appear to be an infectious process Medication reconciliation has been performed. Regular diet. Activity as tolerated. Follow-up with local physician. This note was completed using [employer] voice recognition software. There may be per diem physical therapist assistant errors as a result. Diagnosis - Discharge Diagnosis (1) Chest pain Status: Acute DS: Provider Expected date of discharge: 05/28/16
--- NOTE | 2016-05-27 19:24 | ECHO Report ---
Madelaine Meyer Exam Date: 05/27/2016 15:07 Referring Physician: Technologist: Gayle Louise Age: 65 Ht (in): 63 Wt (lb): 197 Gender: F Exam Location: [facility] Echo Indications: HTN, hyperlipidemia, chest pain, SOB, cough BP: 127 / 63 HR: 60 Rhythm: Sinus Technical Quality: Good IMPRESSIONS 1. Left ventricle is normal size and systolic function with mild to moderate left ventricular hypertrophy and mild diastolic dysfunction. 2. Other cardiac chambers are normal size. 3. Valvular structures are overall unremarkable and hemodynamically stable. MEASUREMENTS (Male / Female) Normal Values 2D ECHO LV Diastolic Diameter PLAX 3.8 cm 4.2 - 5.9 / 3.9 - 5.3 cm LV Systolic Diameter PLAX 2.3 cm LV Fractional Shortening PLAX 38.4 % IVS Diastolic Thickness 1.8 cm 0.6 - 1.0 / 0.6 - 0.9 cm LVPW Diastolic Thickness 1.3 cm 0.6 - 1.0 / 0.6 - 0.9 cm RV Internal Dim ED PLAX 2.7 cm Aortic Root Diameter 2.4 cm LA Systolic Diameter LX 3.2 cm 3.0 - 4.0 / 2.7 - 3.8 cm DOPPLER TR Peak Velocity 202.0 cm/s TR Peak Gradient 16.3 mmHg FINDINGS Left Ventricle Normal left ventricular cavity size. Mild concentric left ventricular hypertrophy with diastolic dysfunction. Left ventricular ejection fraction is estimated at +55 %. No segmental wall motion abnormalities. Right Ventricle Normal right ventricular size. Right Atrium Normal right atrial size. Left Atrium Normal left atrial size. Mitral Valve Mild mitral valve sclerosis. Trace mitral valve regurgitation. Aortic Valve Mild aortic valve sclerosis but with normal function without stenosis or insufficiency.. Tricuspid Valve Morphologically normal tricuspid valve. Mild tricuspid valve regurgitation. Tricuspid regurgitation velocities suggest a PAP of approximately 26 mmHg Pulmonic Valve Morphologically normal pulmonic valve. Pericardium No pericardial effusion. Aorta Normal size aortic root and proximal ascending aorta. Facundo Kirby MD (Electronically Signed) Final Date: 27 May 2016 19:23
[2016-05-27] MEDS ORDERED: SIMVASTATIN 40 MG TABLET PO SCH (21:00)
[2016-05-27] MEDS ORDERED: GABAPENTIN 300 MG CAPSULE PO SCH (21:00)
[2016-05-28] MEDS: ALBUTEROL/IPRATROPIUM 3 ML NEB RESP TX SCH ×4 (00:40→10:40)
[2016-05-28 04:44] LABS: Basophils % 0.5 % (0.0-0.8); Eosinophils # 0.1 10*3/uL (0.0-0.87); Eosinophils % 0.9 % (0.00-10.9); Hematocrit 34.8 VOL% (35.7-47.0); Hemoglobin 11.2 GM/DL (12.0-16.0); Immature Granulocytes % 0.4 %; Immature Granulocytes Absolute 0.03 #; Lymphocytes # 3.9 10*3/uL (1.4-4.0); Lymphocytes % 47.4 % (21.3-54.2); Mean Corpuscular HGB Conc 32.2 GM/DL (32-36); Mean Corpuscular Hemoglobin 28 PG (27-34); Mean Corpuscular Volume 87.2 FL (87-102); Monocytes # 0.6 10*3/uL (0.11-0.8); Monocytes % 7.4 % (1.7-12.7); Neutrophils # 3.5 10*3/uL (1.4-7.4); Neutrophils % 43.4 % (38.7-73.9); Platelet Count 290 T/CUMM (130-400); Red Blood Count 3.99 MC/CUMM (3.8-5.5); Red Cell Distribution Width 14.6 % (9.3-17.3); White Blood Count 8.1 T/CUMM (4-12)
[2016-05-28 05:17] LABS: Calcium 8.7 MG/DL (8.5-10.1); Magnesium 2.3 MG/DL (1.8-2.4); Osmolality,Calculated 287.6 MOS/KG (273-304); Potassium 3.7 MMOL/L (3.5-5.1)
[2016-05-28] MEDS: ACETAMINOPHEN 325 MG TABLET PO PRN (07:09)
[2016-05-28] MEDS: ENOXAPARIN 40 MG/0.4 ML SYRINGE SUBCUT SCH (09:57)
[2016-05-28] MEDS: PANTOPRAZOLE 40 MG TABLET PO SCH (09:57)
[2016-05-28] MEDS: DOCUSATE SODIUM 100 MG CAPSULE PO SCH (09:57)
[2016-05-28] MEDS: ASPIRIN EC 325 MG TABLET PO SCH (09:57)
[2016-05-28] MEDS: PARoxetine 20 MG TABLET PO SCH (09:57)
[2016-05-28] MEDS: ATENOLOL 50 MG TABLET PO SCH (09:57)
[2016-05-28] MEDS: DONEPEZIL 10 MG TABLET PO SCH (09:57)
[2016-05-28] MEDS ORDERED: IBUPROFEN 600 MG TABLET PO PRN (10:05)
--- NOTE | 2016-05-28 11:41 | Nuclear Medicine Report ---
MYOCARDIAL PERFUSION SCAN ATTENDING: Sarthak Toth MD BRIEF CLINICAL SUMMARY: Ms. Meyer is a 65-year-old with unknown history of present illness. PHARMACOLOGIC SESTAMIBI MYOCARDIAL PERFUSION SCAN WITH GATING: The patient was injected with 10 mCi of Sestamibi before being sent for resting images to be obtained. She then underwent Lexiscan prot ocol being completed at rest and injected with Lexiscan as she declined exercise. She was subsequen tly given 25 mCi of Sestamibi and was later sent for stress images to be obtained. The patient has nausea without vomiting. There were no EKG changes or chest pain noted. The 3-D orthogonal reconstruction views shows significant extracardiac uptake adjacent and contiguou s with the inferobasilar segment on the rest and stress images. There is a small reversible apical defect noted in the horizontal and vertical axis. Otherwise, perfusion is unremarkable. Gated stress images shows normal LV systolic function with ejection fraction estimated to be 63%. Wall motion is normal by regional wall motion analysis with normal end-diastolic volume. The raw data in cine mode shows minimal patient motion with mild chest wall attenuation and moderate GI artifact. IMPRESSION: 1. SCINTIGRAPHICALLY MILDLY ABNORMAL PHARMACOLOGIC MYOCARDIAL PERFUSION SCAN. 2. SMALL REVERSIBLE APICAL DEFECTS SUGGESTS BREAST ATTENUATION OR SMALL AREA OF ISCHEMIA. 3. NORMAL LEFT VENTRICULAR SYSTOLIC FUNCTION WITH EJECTION FRACTION ESTIMATED TO BE 63%. 4. NORMAL WALL MOTION BY REGIONAL WALL MOTION ANALYSIS WITH NORMAL END-DIASTOLIC VOLUME. DISPOSITION: This is a low-risk study and does not suggest the presence of significant coronary isc hemia. As noted above, there may be a small area of apical ischemia versus breast attenuation. The patient's normal LV function is encouraging with regard to cardiovascular prognosis despite a very significant GI artifact noted on the study. Procedure performed and interpreted at [facility] Department of Radiology.
[2016-05-28 12:15] VITALS: BP 127/68
== END 2016-05-28 13:35 ==
LOC: N.EDINP 18:32 → N.ED 18:32 → N.TELES 23:38
PROVIDERS: ADMIT Internal Medicine; ATTEND Internal Medicine Geriatric Medicine

== ENCOUNTER 2021-10-16 21:18 | Observation (INO) ==
[2021-10-16] MEDS ORDERED: DIPHTHERIA/TETANUS ADULT VACCINE 0.5 ML SYRINGE IM ONE (21:23)
[2021-10-16 21:38] LABS: Basophils % 0.3 % (0.0-0.8); Eosinophils # 0.1 10*3/uL (0.0-0.87); Eosinophils % 1.3 % (0.00-10.9); Hematocrit 36.9 VOL% (35.7-47.0); Hemoglobin 11.6 GM/DL (12.0-16.0); Immature Granulocytes % 0.3 %; Immature Granulocytes Absolute 0.03 #; Lymphocytes # 4.8 10*3/uL (1.4-4.0); Lymphocytes % 54.3 % (21.3-54.2); Mean Corpuscular HGB Conc 31.4 GM/DL (32-36); Mean Corpuscular Volume 90.9 FL (87-102); Mean Platelet Volume 11.3 FL (9.6-12.0); Monocytes # 0.7 10*3/uL (0.11-0.8); Monocytes % 7.8 % (1.7-12.7); Platelet Count 240 T/CUMM (130-400); Red Blood Count 4.06 MC/CUMM (3.8-5.5); Red Cell Distribution Width 15.2 % (9.3-17.3); White Blood Count 8.9 T/CUMM (4-12)
[2021-10-16 21:52] LABS: Calcium 9.1 MG/DL (8.5-10.1); Osmolality,Calculated 283.1 MOS/KG (273-304); Potassium 4.4 MMOL/L (3.5-5.1)
[2021-10-16 23:02] LABS: Lymphocytes 56 % (20-55); Platelet Estimate Adequate; Total Cells Counted 100
[2021-10-16] MEDS ORDERED: ALUMINUM/MAGNES/SIMETH MAX STR 30 ML UDCUP PO PRN (23:15)
[2021-10-16] MEDS ORDERED: GLUCAGON 1 MG VIAL IM PRN (23:15)
[2021-10-16] MEDS ORDERED: ONDANSETRON 4 MG/2 ML VIAL IV PRN (23:15)
[2021-10-16] MEDS ORDERED: DEXTROSE 10% 250 ML BAG IV PRN (23:15)
[2021-10-16 23:26] LABS: Bacteria,Urine Occasional /HPF (Few); Hyaline Casts,Urine 1 /LPF (0-3); Mucus,Urine Occasional /LPF (Occasional); RBC,Urine 1 /HPF (0-4); Squamous Epithelial Cell,Urine Occasional /HPF (0-10)
[2021-10-16 23:27] LABS: Bilirubin,Urine Negative (Negative); Blood, Urine Negative (Negative); Glucose,Urine (UA) Negative (Negative); Ketones,Urine Negative (Negative); Nitrite,Urine Negative (Negative); Protein,Urine Negative (Negative); Urine Appearance Clear (Clear); Urine Color Yellow (Yellow); Urine Urobilinogen 0.2 eU/dL (<2.0); Urine pH 5.5 (4.5-8.0)
[2021-10-16 23:46] LABS: Barbiturates Screen,Urine Negative (Negative); Benzodiazepines Screen,Urine Negative (Negative); Cannabinoid Screen,Urine Positive (Negative); Opiate Screen,Urine Positive (Negative); Phencyclidine Screen,Urine Negative (Negative)
[2021-10-17 05:01] LABS: Basophils % 0.3 % (0.0-0.8); Eosinophils # 0.1 10*3/uL (0.0-0.87); Eosinophils % 1.2 % (0.00-10.9); Hematocrit 35.9 VOL% (35.7-47.0); Hemoglobin 11.4 GM/DL (12.0-16.0); Immature Granulocytes % 0.3 %; Immature Granulocytes Absolute 0.02 #; Lymphocytes # 3.2 10*3/uL (1.4-4.0); Lymphocytes % 40.5 % (21.3-54.2); Mean Corpuscular HGB Conc 31.8 GM/DL (32-36); Mean Corpuscular Volume 90.7 FL (87-102); Mean Platelet Volume 11.4 FL (9.6-12.0); Monocytes # 0.7 10*3/uL (0.11-0.8); Monocytes % 9.1 % (1.7-12.7); Neutrophils % 48.6 % (38.7-73.9); Platelet Count 233 T/CUMM (130-400); Red Blood Count 3.96 MC/CUMM (3.8-5.5); Red Cell Distribution Width 15.3 % (9.3-17.3); White Blood Count 7.8 T/CUMM (4-12)
[2021-10-17 05:35] LABS: Calcium 9.3 MG/DL (8.5-10.1); Osmolality,Calculated 283.1 MOS/KG (273-304); Potassium 4.2 MMOL/L (3.5-5.1); Risk Ratio 2.03; Thyroid Stimulating Hormone 0.828 uIU/ml (0.358-3.74); VLDL Cholesterol 25.2 MG/DL
[2021-10-17] MEDS: PANTOPRAZOLE 40 MG TABLET PO SCH (09:55)
[2021-10-17] MEDS: ENOXAPARIN 40 MG/0.4 ML SYRINGE SUBCUT SCH (09:56)
[2021-10-17] MEDS: ASPIRIN EC 81 MG TABLET PO SCH (09:56)
[2021-10-17] MEDS: DOCUSATE SODIUM 100 MG CAPSULE PO SCH ×2 (09:56→20:23)
[2021-10-17] MEDS: NICOTINE 21 MG/24 HR PATCH TRANSDERM SCH (11:07)
[2021-10-17] MEDS: ACETAMINOPHEN 325 MG TABLET PO PRN (19:27)
[2021-10-17] MEDS: GABAPENTIN 300 MG CAPSULE PO SCH (20:22)
[2021-10-17] MEDS ORDERED: SIMVASTATIN 40 MG TABLET PO SCH (21:00)
[2021-10-17] MEDS ORDERED: IBUPROFEN 800 MG TABLET PO PRN (22:46)
[2021-10-18 04:18] LABS: Basophils % 0.5 % (0.0-0.8); Eosinophils # 0.1 10*3/uL (0.0-0.87); Eosinophils % 1.4 % (0.00-10.9); Hematocrit 37.2 VOL% (35.7-47.0); Hemoglobin 11.8 GM/DL (12.0-16.0); Immature Granulocytes % 0.2 %; Immature Granulocytes Absolute 0.01 #; Lymphocytes # 3.2 10*3/uL (1.4-4.0); Lymphocytes % 50.8 % (21.3-54.2); Mean Corpuscular HGB Conc 31.7 GM/DL (32-36); Mean Corpuscular Volume 90.1 FL (87-102); Mean Platelet Volume 12.5 FL (9.6-12.0); Monocytes # 0.5 10*3/uL (0.11-0.8); Monocytes % 8.2 % (1.7-12.7); Neutrophils % 38.9 % (38.7-73.9); Platelet Count 167 T/CUMM (130-400); Red Blood Count 4.13 MC/CUMM (3.8-5.5); Red Cell Distribution Width 15.3 % (9.3-17.3); White Blood Count 6.4 T/CUMM (4-12)
[2021-10-18 04:43] LABS: Calcium 8.7 MG/DL (8.5-10.1); Osmolality,Calculated 288.7 MOS/KG (273-304); Potassium 3.5 MMOL/L (3.5-5.1)
[2021-10-18] MEDS ORDERED: ASCORBIC ACID 500 MG TABLET PO SCH (09:00)
[2021-10-18] MEDS: GABAPENTIN 300 MG CAPSULE PO SCH (09:08)
[2021-10-18] MEDS: DOCUSATE SODIUM 100 MG CAPSULE PO SCH (09:08)
[2021-10-18] MEDS: PANTOPRAZOLE 40 MG TABLET PO SCH (09:08)
[2021-10-18] MEDS: ASPIRIN EC 81 MG TABLET PO SCH (09:08)
[2021-10-18] MEDS: NICOTINE 21 MG/24 HR PATCH TRANSDERM SCH (09:09)
[2021-10-18] MEDS: ENOXAPARIN 40 MG/0.4 ML SYRINGE SUBCUT SCH (09:09)
[2021-10-18] MEDS: ACETAMINOPHEN 325 MG TABLET PO PRN (09:09)
[2021-10-18 12:11] VITALS: BP 142/69
== END 2021-10-18 13:26 | disposition home or self-care (01) ==
LOC: N.ED 21:18 → N.EDINP 21:18 → N.TELEN 10-17 01:30
PROVIDERS: ADMIT Emergency Medicine; ATTEND Emergency Medicine

== ENCOUNTER 2022-02-07 12:49 | Inpatient (IN) ==
[2022-02-07] MEDS ORDERED: ONDANSETRON 4 MG/2 ML VIAL IV ONE (13:50)
[2022-02-07] MEDS ORDERED: ONDANSETRON ODT 4 MG TABLET PO STA (14:21)
[2022-02-07] MEDS ORDERED: ONDANSETRON ODT 4 MG TABLET PO ONE (14:22)
[2022-02-07 14:25] LABS: Arterial Base Excess iSTAT -4 MMOL/L (-2.5-2.5); Arterial O2 Saturation iSTAT 96 % (95-100); Arterial PCO2 iSTAT 30 MM HG (35-48); Arterial PO2 iSTAT 81 MM HG (80-95); Arterial Total CO2 iSTAT 20 MMO/L (23-27); Arterial pH iSTAT 7.409 (7.35-7.45)
[2022-02-07 16:17] LABS: Basophils % 0.3 % (0.0-0.8); Eosinophils % 0.1 % (0.00-10.9); Hemoglobin 14.3 GM/DL (12.0-16.0); Immature Granulocytes % 0.4 %; Immature Granulocytes Absolute 0.03 #; Lymphocytes # 2.1 10*3/uL (1.4-4.0); Lymphocytes % 29.4 % (21.3-54.2); Mean Corpuscular HGB Conc 32.5 GM/DL (32-36); Mean Corpuscular Volume 85.9 FL (87-102); Mean Platelet Volume 11.2 FL (9.6-12.0); Monocytes # 0.7 10*3/uL (0.11-0.8); Monocytes % 10.3 % (1.7-12.7); Neutrophils % 59.5 % (38.7-73.9); Platelet Count 308 T/CUMM (130-400); Red Blood Count 5.12 MC/CUMM (3.8-5.5); Red Cell Distribution Width 14.5 % (9.3-17.3); White Blood Count 7.1 T/CUMM (4-12)
[2022-02-07 16:37] LABS: Alanine Aminotransferase 62 U/L (13-56); Alkaline Phosphatase 66 U/L (45-117); Aspartate Amino Transferase 45 U/L (0-37); Bilirubin,Total < 0.39 MG/DL (0.20-1.00); Blood Urea Nitrogen 31 MG/DL (7-18); Calcium 9.4 MG/DL (8.5-10.1); Carbon Dioxide 22 MMOL/L (21-32); Chloride 112 MMOL/L (98-107); Glucose 107 MG/DL (74-106); Osmolality,Calculated 283.5 MOS/KG (273-304); Potassium 4.3 MMOL/L (3.5-5.1); Sodium 139 MMOL/L (136-145); Total Protein 8.7 G/DL (6.4-8.2)
[2022-02-07] MEDS ORDERED: SODIUM CHLORIDE 0.9% 1,000 ML IV STA (17:28)
[2022-02-07] MEDS ORDERED: PROMETHAZINE 25 MG/1 ML VIAL IM PRN (18:00)
[2022-02-07] MEDS ORDERED: guaiFENesin/DM ER 600-30 MG TABLET PO PRN (18:00)
[2022-02-07] MEDS ORDERED: diphenhydrAMINE CAP 25 MG CAPSULE PO PRN (18:00)
[2022-02-07] MEDS ORDERED: NICOTINE 21 MG/24 HR PATCH TRANSDERM PRN (18:11)
[2022-02-07] MEDS: SODIUM CHLORIDE 0.45% 1,000 ML IV SCH (20:05)
[2022-02-07] MEDS: ASCORBIC ACID 500 MG TABLET PO SCH (20:48)
[2022-02-07] MEDS: traZODone 50 MG TABLET PO PRN (20:48)
[2022-02-07] MEDS: ENOXAPARIN 80 MG/0.8 ML SYRINGE SUBCUT SCH (20:48)
[2022-02-07] MEDS: MONTELUKAST 10 MG TABLET PO SCH (21:39)
[2022-02-07] MEDS: BUDESONIDE/FORMOTEROL 160-4.5 INHALER 6 GM INH SCH (21:39)
[2022-02-08] MEDS: MORPHINE 2 MG/1 ML SYRINGE IV PRN ×2 (00:02→21:56)
[2022-02-08 05:41] LABS: Basophils % 0.4 % (0.0-0.8); Eosinophils % 0.2 % (0.00-10.9); Hematocrit 38.6 VOL% (35.7-47.0); Hemoglobin 12.4 GM/DL (12.0-16.0); Immature Granulocytes % 0.2 %; Immature Granulocytes Absolute 0.01 #; Lymphocytes # 2.3 10*3/uL (1.4-4.0); Mean Corpuscular HGB Conc 32.1 GM/DL (32-36); Mean Corpuscular Volume 88.9 FL (87-102); Mean Platelet Volume 11.1 FL (9.6-12.0); Monocytes # 0.5 10*3/uL (0.11-0.8); Monocytes % 9.7 % (1.7-12.7); Neutrophils % 44.5 % (38.7-73.9); Platelet Count 259 T/CUMM (130-400); Red Blood Count 4.34 MC/CUMM (3.8-5.5); Red Cell Distribution Width 14.6 % (9.3-17.3); White Blood Count 5.1 T/CUMM (4-12)
[2022-02-08 06:02] LABS: Alanine Aminotransferase 47 U/L (13-56); Albumin 3.3 G/DL (3.4-5.0); Alkaline Phosphatase 57 U/L (45-117); Aspartate Amino Transferase 30 U/L (0-37); Bilirubin,Total < 0.39 MG/DL (0.20-1.00); Blood Urea Nitrogen 20 MG/DL (7-18); Calcium 8.5 MG/DL (8.5-10.1); Carbon Dioxide 21 MMOL/L (21-32); Chloride 114 MMOL/L (98-107); Glucose 110 MG/DL (74-106); Osmolality,Calculated 284.3 MOS/KG (273-304); Sodium 141 MMOL/L (136-145); Total Protein 7.3 G/DL (6.4-8.2)
[2022-02-08 06:07] LABS: Ferritin 160.5 ng/mL (8-252)
[2022-02-08] MEDS: ASPIRIN EC 81 MG TABLET PO SCH (10:03)
[2022-02-08] MEDS: ASCORBIC ACID 500 MG TABLET PO SCH ×2 (10:03→20:49)
[2022-02-08] MEDS: DEXAMETHASONE 4 MG/1 ML VIAL IV SCH (10:03)
[2022-02-08] MEDS: CHOLECALCIFEROL 1,000 UNIT TABLET PO SCH (10:03)
[2022-02-08] MEDS: ZINC GLUCONATE 50 MG TABLET PO SCH (10:04)
[2022-02-08] MEDS: BUDESONIDE/FORMOTEROL 160-4.5 INHALER 6 GM INH SCH ×2 (10:04→20:49)
[2022-02-08] MEDS: SODIUM CHLORIDE 0.45% 1,000 ML IV SCH ×2 (10:08→19:51)
[2022-02-08] MEDS: ENOXAPARIN 80 MG/0.8 ML SYRINGE SUBCUT SCH (20:48)
[2022-02-08] MEDS: traZODone 50 MG TABLET PO PRN (20:49)
[2022-02-08] MEDS: MONTELUKAST 10 MG TABLET PO SCH (20:49)
[2022-02-08] MEDS: SIMVASTATIN 40 MG TABLET PO SCH (20:49)
[2022-02-09 06:03] LABS: Hematocrit 39.5 VOL% (35.7-47.0); Hemoglobin 12.5 GM/DL (12.0-16.0); Immature Granulocytes % 0.3 %; Immature Granulocytes Absolute 0.02 #; Lymphocytes # 1.4 10*3/uL (1.4-4.0); Lymphocytes % 23.7 % (21.3-54.2); Mean Corpuscular HGB Conc 31.6 GM/DL (32-36); Mean Corpuscular Volume 89.4 FL (87-102); Mean Platelet Volume 11.8 FL (9.6-12.0); Monocytes # 0.4 10*3/uL (0.11-0.8); Monocytes % 6.1 % (1.7-12.7); Neutrophils % 69.9 % (38.7-73.9); Platelet Count 272 T/CUMM (130-400); Red Blood Count 4.42 MC/CUMM (3.8-5.5); Red Cell Distribution Width 14.6 % (9.3-17.3); White Blood Count 5.8 T/CUMM (4-12)
[2022-02-09 06:21] LABS: Alanine Aminotransferase 38 U/L (13-56); Alkaline Phosphatase 52 U/L (45-117); Aspartate Amino Transferase 20 U/L (0-37); Bilirubin,Total < 0.39 MG/DL (0.20-1.00); Blood Urea Nitrogen 13 MG/DL (7-18); Calcium 8.7 MG/DL (8.5-10.1); Carbon Dioxide 22 MMOL/L (21-32); Chloride 114 MMOL/L (98-107); Glucose 156 MG/DL (74-106); Osmolality,Calculated 283.3 MOS/KG (273-304); Potassium 4.5 MMOL/L (3.5-5.1); Sodium 141 MMOL/L (136-145); Total Protein 7.1 G/DL (6.4-8.2)
[2022-02-09 06:26] LABS: Ferritin 133.3 ng/mL (8-252)
[2022-02-09] MEDS ORDERED: CHOLECALCIFEROL 1,000 UNIT TABLET PO SCH (09:00)
[2022-02-09] MEDS: ASPIRIN EC 81 MG TABLET PO SCH (09:28)
[2022-02-09] MEDS: CHOLECALCIFEROL 1,000 UNIT TABLET PO SCH (09:28)
[2022-02-09] MEDS: DEXAMETHASONE 4 MG/1 ML VIAL IV SCH (09:28)
[2022-02-09] MEDS: ASCORBIC ACID 500 MG TABLET PO SCH ×2 (09:28→20:23)
[2022-02-09] MEDS: ZINC GLUCONATE 50 MG TABLET PO SCH (09:29)
[2022-02-09] MEDS: SODIUM CHLORIDE 0.45% 1,000 ML IV SCH ×2 (09:30→20:27)
[2022-02-09] MEDS: BUDESONIDE/FORMOTEROL 160-4.5 INHALER 6 GM INH SCH ×3 (09:31→20:25)
[2022-02-09] MEDS ORDERED: REMDESIVIR 200 MG in SODIUM CHLORIDE 0.9% 210 ML IV ONE (11:00)
[2022-02-09] MEDS: MORPHINE 2 MG/1 ML SYRINGE IV PRN (11:05)
[2022-02-09] MEDS: cefTRIAXone 1,000 MG in SODIUM CHLORIDE 0.9% 100 ML IV SCH (14:20)
[2022-02-09] MEDS ORDERED: SODIUM CHLORIDE 0.9% 250 ML IV ONE (15:01)
[2022-02-09] MEDS: AZITHROMYCIN INJ 500 MG in SODIUM CHLORIDE 0.9% 250 ML IV SCH (15:06)
[2022-02-09] MEDS: ENOXAPARIN 80 MG/0.8 ML SYRINGE SUBCUT SCH (20:23)
[2022-02-09] MEDS: MONTELUKAST 10 MG TABLET PO SCH (20:24)
[2022-02-09] MEDS: SIMVASTATIN 40 MG TABLET PO SCH (20:24)
[2022-02-09] MEDS: traZODone 50 MG TABLET PO PRN (20:24)
[2022-02-10] MEDS: MORPHINE 2 MG/1 ML SYRINGE IV PRN ×2 (00:18→15:37)
[2022-02-10 06:47] LABS: Basophils % 0.1 % (0.0-0.8); Hematocrit 40.3 VOL% (35.7-47.0); Immature Granulocytes % 0.4 %; Immature Granulocytes Absolute 0.05 #; Lymphocytes # 2.5 10*3/uL (1.4-4.0); Lymphocytes % 21.6 % (21.3-54.2); Mean Corpuscular HGB Conc 32.3 GM/DL (32-36); Mean Platelet Volume 11.4 FL (9.6-12.0); Monocytes # 0.7 10*3/uL (0.11-0.8); Monocytes % 5.9 % (1.7-12.7); Platelet Count 280 T/CUMM (130-400); Red Blood Count 4.53 MC/CUMM (3.8-5.5); Red Cell Distribution Width 14.5 % (9.3-17.3); White Blood Count 11.7 T/CUMM (4-12)
[2022-02-10 07:01] LABS: Calcium 9.1 MG/DL (8.5-10.1); Osmolality,Calculated 286.8 MOS/KG (273-304); Potassium 4.4 MMOL/L (3.5-5.1)
[2022-02-10 07:08] LABS: Alanine Aminotransferase 37 U/L (13-56); Alkaline Phosphatase 54 U/L (45-117); Aspartate Amino Transferase 20 U/L (0-37); Bilirubin,Total < 0.39 MG/DL (0.20-1.00); Blood Urea Nitrogen 14 MG/DL (7-18); Calcium 8.8 MG/DL (8.5-10.1); Carbon Dioxide 24 MMOL/L (21-32); Chloride 116 MMOL/L (98-107); Glucose 102 MG/DL (74-106); Osmolality,Calculated 288.7 MOS/KG (273-304); Potassium 4.6 MMOL/L (3.5-5.1); Sodium 145 MMOL/L (136-145); Total Protein 6.6 G/DL (6.4-8.2)
[2022-02-10 07:09] LABS: Ferritin 117.8 ng/mL (8-252)
[2022-02-10] MEDS: ASPIRIN EC 81 MG TABLET PO SCH (10:07)
[2022-02-10] MEDS: REMDESIVIR 100 MG in SODIUM CHLORIDE 0.9% 100 ML IV SCH (10:08)
[2022-02-10] MEDS: CHOLECALCIFEROL 1,000 UNIT TABLET PO SCH (10:08)
[2022-02-10] MEDS: ASCORBIC ACID 500 MG TABLET PO SCH ×2 (10:08→22:04)
[2022-02-10] MEDS: ZINC GLUCONATE 50 MG TABLET PO SCH (10:08)
[2022-02-10] MEDS: BUDESONIDE/FORMOTEROL 160-4.5 INHALER 6 GM INH SCH ×2 (10:08→22:04)
[2022-02-10] MEDS: DEXAMETHASONE 4 MG/1 ML VIAL IV SCH (10:08)
[2022-02-10] MEDS: cefTRIAXone 1,000 MG in SODIUM CHLORIDE 0.9% 100 ML IV SCH (11:52)
[2022-02-10] MEDS: AZITHROMYCIN INJ 500 MG in SODIUM CHLORIDE 0.9% 250 ML IV SCH (13:01)
[2022-02-10] MEDS ORDERED: hydrALAZINE 20 MG/1 ML VIAL IV PRN (13:27)
[2022-02-10] MEDS: SODIUM CHLORIDE 0.45% 1,000 ML IV SCH (16:51)
[2022-02-10] MEDS: MONTELUKAST 10 MG TABLET PO SCH (22:04)
[2022-02-10] MEDS: SIMVASTATIN 40 MG TABLET PO SCH (22:04)
[2022-02-10] MEDS: ENOXAPARIN 80 MG/0.8 ML SYRINGE SUBCUT SCH (22:04)
[2022-02-10] MEDS: ALBUTEROL 2.5 MG/3 ML NEB RESP TX PRN (22:10)
[2022-02-11 06:23] LABS: Basophils % 0.1 % (0.0-0.8); Hematocrit 37.4 VOL% (35.7-47.0); Hemoglobin 12.2 GM/DL (12.0-16.0); Immature Granulocytes % 0.3 %; Immature Granulocytes Absolute 0.03 #; Lymphocytes # 2.8 10*3/uL (1.4-4.0); Mean Corpuscular HGB Conc 32.6 GM/DL (32-36); Mean Corpuscular Volume 88.4 FL (87-102); Mean Platelet Volume 11.8 FL (9.6-12.0); Monocytes # 0.6 10*3/uL (0.11-0.8); Monocytes % 6.9 % (1.7-12.7); Neutrophils % 61.7 % (38.7-73.9); Platelet Count 259 T/CUMM (130-400); Red Blood Count 4.23 MC/CUMM (3.8-5.5); Red Cell Distribution Width 14.4 % (9.3-17.3)
[2022-02-11 06:45] LABS: Alanine Aminotransferase 36 U/L (13-56); Albumin 2.9 G/DL (3.4-5.0); Alkaline Phosphatase 45 U/L (45-117); Aspartate Amino Transferase 18 U/L (0-37); Bilirubin,Total < 0.39 MG/DL (0.20-1.00); Blood Urea Nitrogen 11 MG/DL (7-18); Calcium 8.4 MG/DL (8.5-10.1); Carbon Dioxide 25 MMOL/L (21-32); Chloride 112 MMOL/L (98-107); Glucose 96 MG/DL (74-106); Potassium 3.5 MMOL/L (3.5-5.1); Sodium 143 MMOL/L (136-145); Total Protein 6.8 G/DL (6.4-8.2)
[2022-02-11 06:47] LABS: Ferritin 112.7 ng/mL (8-252)
[2022-02-11] MEDS: CHOLECALCIFEROL 1,000 UNIT TABLET PO SCH (09:59)
[2022-02-11] MEDS: ASCORBIC ACID 500 MG TABLET PO SCH ×2 (09:59→21:31)
[2022-02-11] MEDS: ZINC GLUCONATE 50 MG TABLET PO SCH (09:59)
[2022-02-11] MEDS: ASPIRIN EC 81 MG TABLET PO SCH (10:00)
[2022-02-11] MEDS: DEXAMETHASONE 4 MG/1 ML VIAL IV SCH (10:01)
[2022-02-11] MEDS: REMDESIVIR 100 MG in SODIUM CHLORIDE 0.9% 100 ML IV SCH (10:01)
[2022-02-11] MEDS: BUDESONIDE/FORMOTEROL 160-4.5 INHALER 6 GM INH SCH ×2 (10:07→21:31)
[2022-02-11] MEDS: cefTRIAXone 1,000 MG in SODIUM CHLORIDE 0.9% 100 ML IV SCH (11:58)
[2022-02-11] MEDS: AZITHROMYCIN INJ 500 MG in SODIUM CHLORIDE 0.9% 250 ML IV SCH (11:59)
[2022-02-11] MEDS: ENOXAPARIN 80 MG/0.8 ML SYRINGE SUBCUT SCH (21:30)
[2022-02-11] MEDS: traZODone 50 MG TABLET PO PRN (21:31)
[2022-02-11] MEDS: SIMVASTATIN 40 MG TABLET PO SCH (21:31)
[2022-02-11] MEDS: MONTELUKAST 10 MG TABLET PO SCH (21:31)
[2022-02-11] MEDS: MORPHINE 2 MG/1 ML SYRINGE IV PRN (21:35)
[2022-02-11] MEDS: ALBUTEROL 2.5 MG/3 ML NEB RESP TX PRN (23:15)
[2022-02-12] MEDS: SODIUM CHLORIDE 0.45% 1,000 ML IV SCH ×3 (01:02→09:10)
[2022-02-12] MEDS: MORPHINE 2 MG/1 ML SYRINGE IV PRN ×3 (03:25→19:33)
[2022-02-12 06:11] LABS: Basophils % 0.1 % (0.0-0.8); Eosinophils % 0.1 % (0.00-10.9); Hematocrit 37.2 VOL% (35.7-47.0); Hemoglobin 11.9 GM/DL (12.0-16.0); Immature Granulocytes % 0.5 %; Immature Granulocytes Absolute 0.05 #; Lymphocytes # 3.3 10*3/uL (1.4-4.0); Lymphocytes % 33.3 % (21.3-54.2); Mean Corpuscular Volume 86.7 FL (87-102); Mean Platelet Volume 11.1 FL (9.6-12.0); Monocytes # 0.8 10*3/uL (0.11-0.8); Monocytes % 7.9 % (1.7-12.7); Neutrophils % 58.1 % (38.7-73.9); Platelet Count 293 T/CUMM (130-400); Red Blood Count 4.29 MC/CUMM (3.8-5.5); Red Cell Distribution Width 14.1 % (9.3-17.3); White Blood Count 9.8 T/CUMM (4-12)
[2022-02-12 06:38] LABS: Ferritin 116.7 ng/mL (8-252)
[2022-02-12 06:45] LABS: Alanine Aminotransferase 38 U/L (13-56); Albumin 2.8 G/DL (3.4-5.0); Alkaline Phosphatase 43 U/L (45-117); Aspartate Amino Transferase 23 U/L (0-37); Bilirubin,Total < 0.39 MG/DL (0.20-1.00); Blood Urea Nitrogen 15 MG/DL (7-18); Calcium 8.3 MG/DL (8.5-10.1); Carbon Dioxide 23 MMOL/L (21-32); Chloride 111 MMOL/L (98-107); Glucose 94 MG/DL (74-106); Osmolality,Calculated 281.3 MOS/KG (273-304); Potassium 3.4 MMOL/L (3.5-5.1); Sodium 141 MMOL/L (136-145); Total Protein 6.2 G/DL (6.4-8.2)
[2022-02-12] MEDS ORDERED: POTASSIUM CHLORIDE 20 MEQ TABLET PO ONE (09:00)
[2022-02-12] MEDS: DEXAMETHASONE 4 MG/1 ML VIAL IV SCH (09:08)
[2022-02-12] MEDS: ZINC GLUCONATE 50 MG TABLET PO SCH (09:09)
[2022-02-12] MEDS: ASCORBIC ACID 500 MG TABLET PO SCH ×2 (09:09→22:20)
[2022-02-12] MEDS: CHOLECALCIFEROL 1,000 UNIT TABLET PO SCH (09:10)
[2022-02-12] MEDS: ASPIRIN EC 81 MG TABLET PO SCH (09:10)
[2022-02-12] MEDS: BUDESONIDE/FORMOTEROL 160-4.5 INHALER 6 GM INH SCH ×2 (09:10→22:19)
[2022-02-12] MEDS: cefTRIAXone 1,000 MG in SODIUM CHLORIDE 0.9% 100 ML IV SCH (11:17)
[2022-02-12] MEDS: AZITHROMYCIN 250 MG TABLET PO SCH (12:40)
[2022-02-12] MEDS: ONDANSETRON 4 MG/2 ML VIAL IV PRN (12:40)
[2022-02-12] MEDS: MONTELUKAST 10 MG TABLET PO SCH (22:19)
[2022-02-12] MEDS: ENOXAPARIN 80 MG/0.8 ML SYRINGE SUBCUT SCH (22:19)
[2022-02-12] MEDS: SIMVASTATIN 40 MG TABLET PO SCH (22:20)
[2022-02-12] MEDS: traZODone 50 MG TABLET PO PRN (22:20)
[2022-02-13] MEDS: MORPHINE 2 MG/1 ML SYRINGE IV PRN (01:16)
[2022-02-13 05:17] LABS: Eosinophils % 0.2 % (0.00-10.9); Hematocrit 35.4 VOL% (35.7-47.0); Hemoglobin 11.5 GM/DL (12.0-16.0); Immature Granulocytes % 0.6 %; Immature Granulocytes Absolute 0.06 #; Lymphocytes # 3.9 10*3/uL (1.4-4.0); Lymphocytes % 37.5 % (21.3-54.2); Mean Corpuscular HGB Conc 32.5 GM/DL (32-36); Mean Corpuscular Volume 87.2 FL (87-102); Mean Platelet Volume 11.4 FL (9.6-12.0); Monocytes # 0.7 10*3/uL (0.11-0.8); Monocytes % 6.6 % (1.7-12.7); Neutrophils % 55.1 % (38.7-73.9); Platelet Count 306 T/CUMM (130-400); Red Blood Count 4.06 MC/CUMM (3.8-5.5); Red Cell Distribution Width 13.9 % (9.3-17.3); White Blood Count 10.3 T/CUMM (4-12)
[2022-02-13 05:44] LABS: Alanine Aminotransferase 35 U/L (13-56); Alkaline Phosphatase 41 U/L (45-117); Aspartate Amino Transferase 20 U/L (0-37); Bilirubin,Total < 0.39 MG/DL (0.20-1.00); Blood Urea Nitrogen 19 MG/DL (7-18); Calcium 8.9 MG/DL (8.5-10.1); Carbon Dioxide 26 MMOL/L (21-32); Chloride 111 MMOL/L (98-107); Glucose 117 MG/DL (74-106); Osmolality,Calculated 285.1 MOS/KG (273-304); Potassium 3.7 MMOL/L (3.5-5.1); Sodium 142 MMOL/L (136-145); Total Protein 6.2 G/DL (6.4-8.2)
[2022-02-13 05:46] LABS: Ferritin 126.5 ng/mL (8-252)
[2022-02-13] MEDS: DEXAMETHASONE 4 MG/1 ML VIAL IV SCH (09:09)
[2022-02-13] MEDS: ONDANSETRON 4 MG/2 ML VIAL IV PRN (09:09)
[2022-02-13] MEDS: CHOLECALCIFEROL 1,000 UNIT TABLET PO SCH (09:10)
[2022-02-13] MEDS: ZINC GLUCONATE 50 MG TABLET PO SCH (09:10)
[2022-02-13] MEDS: AZITHROMYCIN 250 MG TABLET PO SCH (09:10)
[2022-02-13] MEDS: ASCORBIC ACID 500 MG TABLET PO SCH ×2 (09:11→21:09)
[2022-02-13] MEDS: cefTRIAXone 1,000 MG in SODIUM CHLORIDE 0.9% 100 ML IV SCH (09:11)
[2022-02-13] MEDS: BUDESONIDE/FORMOTEROL 160-4.5 INHALER 6 GM INH SCH ×2 (09:11→21:09)
[2022-02-13] MEDS: ASPIRIN EC 81 MG TABLET PO SCH (09:11)
[2022-02-13 16:46] LABS: Bilirubin,Urine Negative (Negative); Blood, Urine Negative (Negative); Glucose,Urine (UA) Negative (Negative); Ketones,Urine Negative (Negative); Nitrite,Urine Negative (Negative); Protein,Urine Negative (Negative); Urine Appearance Clear (Clear); Urine Color Yellow (Yellow); Urine Urobilinogen 0.2 eU/dL (<2.0)
[2022-02-13 16:55] LABS: Bacteria,Urine Occasional /HPF (Few); Hyaline Casts,Urine 4 /LPF (0-3); Mucus,Urine Occasional /LPF (Occasional); RBC,Urine 1 /HPF (0-4); Squamous Epithelial Cell,Urine Occasional /HPF (0-10)
[2022-02-13] MEDS: ENOXAPARIN 40 MG/0.4 ML SYRINGE SUBCUT SCH (21:08)
[2022-02-13] MEDS: SIMVASTATIN 40 MG TABLET PO SCH (21:09)
[2022-02-13] MEDS: MONTELUKAST 10 MG TABLET PO SCH (21:09)
[2022-02-13] MEDS: traZODone 50 MG TABLET PO PRN (21:13)
[2022-02-14] MEDS: CHOLECALCIFEROL 1,000 UNIT TABLET PO SCH (09:13)
[2022-02-14] MEDS: ASPIRIN EC 81 MG TABLET PO SCH (09:13)
[2022-02-14] MEDS: ASCORBIC ACID 500 MG TABLET PO SCH ×2 (09:13→20:38)
[2022-02-14] MEDS: ZINC GLUCONATE 50 MG TABLET PO SCH (09:13)
[2022-02-14] MEDS: BUDESONIDE/FORMOTEROL 160-4.5 INHALER 6 GM INH SCH ×2 (09:15→20:38)
[2022-02-14] MEDS: DEXAMETHASONE 4 MG/1 ML VIAL IV SCH (09:18)
[2022-02-14] MEDS: cefTRIAXone 1,000 MG in SODIUM CHLORIDE 0.9% 100 ML IV SCH (09:20)
[2022-02-14] MEDS: SIMETHICONE CHEW 125 MG TABLET PO PRN (11:47)
[2022-02-14] MEDS: ACETAMINOPHEN 325 MG TABLET PO PRN (18:29)
[2022-02-14] MEDS: ENOXAPARIN 40 MG/0.4 ML SYRINGE SUBCUT SCH (20:37)
[2022-02-14] MEDS: MONTELUKAST 10 MG TABLET PO SCH (20:38)
[2022-02-14] MEDS: SIMVASTATIN 40 MG TABLET PO SCH (20:38)
[2022-02-14] MEDS: traZODone 50 MG TABLET PO PRN (20:39)
[2022-02-15 06:24] LABS: Basophils % 0.1 % (0.0-0.8); Eosinophils % 0.3 % (0.00-10.9); Hematocrit 35.7 VOL% (35.7-47.0); Hemoglobin 11.9 GM/DL (12.0-16.0); Immature Granulocytes % 0.9 %; Immature Granulocytes Absolute 0.11 #; Lymphocytes # 4.5 10*3/uL (1.4-4.0); Mean Corpuscular HGB Conc 33.3 GM/DL (32-36); Mean Corpuscular Volume 86.7 FL (87-102); Mean Platelet Volume 11.7 FL (9.6-12.0); Monocytes # 0.8 10*3/uL (0.11-0.8); Monocytes % 6.8 % (1.7-12.7); Neutrophils % 55.9 % (38.7-73.9); Platelet Count 362 T/CUMM (130-400); Red Blood Count 4.12 MC/CUMM (3.8-5.5); Red Cell Distribution Width 13.9 % (9.3-17.3); White Blood Count 12.4 T/CUMM (4-12)
[2022-02-15 06:55] LABS: Osmolality,Calculated 280.4 MOS/KG (273-304); Potassium 3.5 MMOL/L (3.5-5.1)
[2022-02-15] MEDS: ASCORBIC ACID 500 MG TABLET PO SCH ×2 (08:48→20:24)
[2022-02-15] MEDS: ZINC GLUCONATE 50 MG TABLET PO SCH (08:48)
[2022-02-15] MEDS: DEXAMETHASONE 4 MG/1 ML VIAL IV SCH (08:49)
[2022-02-15] MEDS: ASPIRIN EC 81 MG TABLET PO SCH (08:49)
[2022-02-15] MEDS: CHOLECALCIFEROL 1,000 UNIT TABLET PO SCH (08:49)
[2022-02-15] MEDS: BUDESONIDE/FORMOTEROL 160-4.5 INHALER 6 GM INH SCH ×2 (08:50→20:24)
[2022-02-15] MEDS: cefTRIAXone 1,000 MG in SODIUM CHLORIDE 0.9% 100 ML IV SCH (10:03)
[2022-02-15] MEDS ORDERED: LACTULOSE 20 GM/30 ML UDCUP PO PRN (15:55)
[2022-02-15] MEDS ORDERED: LACTULOSE 20 GM/30 ML UDCUP PO ONE (15:55)
[2022-02-15] MEDS: ENOXAPARIN 40 MG/0.4 ML SYRINGE SUBCUT SCH (20:23)
[2022-02-15] MEDS: MONTELUKAST 10 MG TABLET PO SCH (20:23)
[2022-02-15] MEDS: SIMVASTATIN 40 MG TABLET PO SCH (20:24)
[2022-02-15] MEDS: ONDANSETRON 4 MG/2 ML VIAL IV PRN (22:27)
[2022-02-15] MEDS: SIMETHICONE CHEW 125 MG TABLET PO PRN (22:27)
[2022-02-16] MEDS: PANTOPRAZOLE 40 MG TABLET PO SCH (06:44)
[2022-02-16] MEDS: ZINC GLUCONATE 50 MG TABLET PO SCH (08:08)
[2022-02-16] MEDS: cefTRIAXone 1,000 MG in SODIUM CHLORIDE 0.9% 100 ML IV SCH (08:09)
[2022-02-16] MEDS: ASCORBIC ACID 500 MG TABLET PO SCH ×2 (08:09→22:12)
[2022-02-16] MEDS: CHOLECALCIFEROL 1,000 UNIT TABLET PO SCH (08:09)
[2022-02-16] MEDS: DEXAMETHASONE 4 MG/1 ML VIAL IV SCH (08:09)
[2022-02-16] MEDS: ASPIRIN EC 81 MG TABLET PO SCH (08:09)
[2022-02-16] MEDS ORDERED: BISACODYL 10 MG SUPP RECTAL ONE (10:46)
[2022-02-16] MEDS: BUDESONIDE/FORMOTEROL 160-4.5 INHALER 6 GM INH SCH ×2 (12:12→22:12)
[2022-02-16] MEDS: SIMVASTATIN 40 MG TABLET PO SCH (22:11)
[2022-02-16] MEDS: ENOXAPARIN 40 MG/0.4 ML SYRINGE SUBCUT SCH (22:12)
[2022-02-16] MEDS: MONTELUKAST 10 MG TABLET PO SCH (22:12)
[2022-02-17] MEDS: PANTOPRAZOLE 40 MG TABLET PO SCH (06:19)
[2022-02-17] MEDS: cefTRIAXone 1,000 MG in SODIUM CHLORIDE 0.9% 100 ML IV SCH (09:54)
[2022-02-17] MEDS: DEXAMETHASONE 4 MG/1 ML VIAL IV SCH (09:54)
[2022-02-17] MEDS: ZINC GLUCONATE 50 MG TABLET PO SCH (09:55)
[2022-02-17] MEDS: ASPIRIN EC 81 MG TABLET PO SCH (09:55)
[2022-02-17] MEDS: BUDESONIDE/FORMOTEROL 160-4.5 INHALER 6 GM INH SCH ×2 (09:55→21:03)
[2022-02-17] MEDS: CHOLECALCIFEROL 1,000 UNIT TABLET PO SCH (09:55)
[2022-02-17] MEDS: ASCORBIC ACID 500 MG TABLET PO SCH ×2 (09:55→21:02)
[2022-02-17] MEDS: SIMVASTATIN 40 MG TABLET PO SCH (21:02)
[2022-02-17] MEDS: ENOXAPARIN 40 MG/0.4 ML SYRINGE SUBCUT SCH (21:02)
[2022-02-17] MEDS: MONTELUKAST 10 MG TABLET PO SCH (21:03)
[2022-02-18] MEDS: PANTOPRAZOLE 40 MG TABLET PO SCH (07:12)
[2022-02-18 08:47] VITALS: BP 155/90
[2022-02-18] MEDS: CHOLECALCIFEROL 1,000 UNIT TABLET PO SCH (08:48)
[2022-02-18] MEDS: ZINC GLUCONATE 50 MG TABLET PO SCH (08:48)
[2022-02-18] MEDS: ASPIRIN EC 81 MG TABLET PO SCH (08:48)
[2022-02-18] MEDS: ASCORBIC ACID 500 MG TABLET PO SCH (08:48)
[2022-02-18] MEDS: cefTRIAXone 1,000 MG in SODIUM CHLORIDE 0.9% 100 ML IV SCH (08:49)
[2022-02-18] MEDS: BUDESONIDE/FORMOTEROL 160-4.5 INHALER 6 GM INH SCH (08:50)
[2022-02-18] MEDS: ACETAMINOPHEN 325 MG TABLET PO PRN (10:58)
== END 2022-02-18 12:21 | disposition home or self-care (01) | DRG 177 ==
LOC: EDUNIT# → EDBD → N.EDINP 12:49 → N.ED 12:49 → SUATTDRO 17:44 → N.2E 19:14 → SUATTDRO 02-09 11:07
PROVIDERS: ADMIT Internal Medicine; ATTEND Hospitalist